=== PATIENT | male | born 1960 | race Hispanic/Latino ===

== ENCOUNTER 2025-07-03 09:28 | Emergency (ER) | payer OTHER ==
[~2025-07-03] VITALS: Ht 175.3 cm; Wt 80.7 kg
[2025-07-03 09:33] VITALS: BP 132/78; PULSE 125; RESP 16; TEMP 97.9
--- NOTE | 2025-07-03 09:46 | EKG ---
[facility] Test Date: 2025-07-03 Test Time: 09:39:07 Pat Name: DUKE GARCIA Department: ED Room: Gender: M Pharmacy Delivery Driver: [id number] : 1960 Requested By: JEIMY BRIDGES Order Number: [id number] Reading MD: Leon Langley Measurements Intervals Occidental Rate: 110 P: 48 IL: 127 QRS: -32 QRSD: 82 T: 78 QT: 326 QTc: 440 Interpretive Statements Sinus tachycardia Left axis deviation No previous ECG available for comparison Electronically Signed On 07-03-2025 18:17:01 PYTHON CONSULTANT by Leon Langley Please click the below link to view image of tracing.
[2025-07-03] MEDS ORDERED: 0.9%NACL 1000ML 1,000 ML IV ONE (10:00)
[2025-07-03 10:05] LABS: IMMATURE GRANULOCYTE ABSOLUTE 1.94 K/uL (0-1); NUCLEATED RED BLOOD CELLS 3.9 % (0.0-0.19); PLATELET COUNT (AUTO) 81 K/uL (130-400); RED BLOOD CELL COUNT(AUTO) 3.50 MIL/uL (4.50-6.20); RED CELL DISTRIBUTION WIDTH 14.7 % (11.0-15.5); WHITE BLOOD COUNT (AUTO) 16.0 K/uL (4.8-10.8)
[2025-07-03 10:07] LABS: APPEARANCE,URINE CLOUDY (CLEAR); GLUCOSE, URINE (UA) 30 mg/dL (NEGATIVE); LEUKOCYTE ESTERASE ,URINE NEGATIVE Leu/uL (NEGATIVE); NITRATE,URINE NEGATIVE (NEGATIVE); OCCULT BLOOD,URINE SMALL (NEGATIVE)
[2025-07-03 10:11] LABS: ADD UA MICROSCOPIC YES
[2025-07-03 10:13] LABS: CREATININE 0.8 mg/dL (0.5-1.3); GLOMERULAR FILTR. RATE CALC 97.0 mL/min (>90); GLUCOSE,RANDOM 190.0 mg/dL (70-105); SODIUM SERUM 139.0 mmol/L (136-145); UREA NITROGEN, BLOOD 16.0 mg/dL (7-18)
[2025-07-03 10:14] LABS: SQUAMOUS EPITHELIAL CELL,UR RARE /HPF (0-2)
[2025-07-03 10:15] LABS: INR 1.68 (0.85-1.15)
[2025-07-03 10:26] LABS: ASPARTATE AMINOTRANSFERASE 402.0 U/L (10-37); TOTAL PROTEIN, SERUM 6.7 g/dL (6.0-8.3)
[2025-07-03 10:33] LABS: CREATINE KINASE, TOTAL 749.0 U/L (21-232)
--- NOTE | 2025-07-03 11:22 | HMCIMG ---
EXAM: CT Abdomen and Pelvis Without IV contrast CLINICAL HISTORY: left flank pain TECHNIQUE: Axial computed tomography images of the abdomen and pelvis without intravenous contrast. CONTRAST: No IV contrast. COMPARISON: None provided. FINDINGS: LUNG BASES: Mild left-sided and minimal right-sided pleural effusion with passive atelectasis of the underlying lung. LIVER: Unremarkable. GALLBLADDER AND BILE DUCTS: The gallbladder appears within normal limits. No radioopaque gallstones are seen. No biliary ductal dilatation is evident. PANCREAS: Unremarkable. SPLEEN: Unremarkable. ADRENAL GLANDS: Unremarkable. KIDNEYS, URETERS, AND BLADDER: Mild bilateral perinephric fat stranding with mild thickening of the left-sided anterior and lateral conal fascia. There is no hydronephrosis or hydroureter. No urinary calculi are seen. The urinary bladder is minimally distended. STOMACH AND BOWEL: Unremarkable appearance of the stomach and bowel. No evidence of bowel obstruction. No evidence suggesting enteritis or colitis. Small bilateral inguinal hernia with fat content. 0.8 cm-sized umbilical defect with omental fat herniation. APPENDIX: No evidence of acute appendicitis on CT examination. PERITONEUM: Trace free fluid. No free air. LYMPH NODES: Multiple subcentimeter to enlarged lymph nodes in the pre-aortic, para-aortic, aorto-caval, and retroperitoneal largest measuring 1.7 x 1.5 cm in the left para-aortic region. REPRODUCTIVE: Unremarkable as visualized. VASCULATURE: No evidence of abdominal aortic aneurysm. BONES: Degenerative changes in the visualized spine in the form of marginal osteophytes and degenerative discs at multiple lumbar levels. No aggressive appearing osseous lesion. No acute osseous pathology evident. IMPRESSION: 1. Mild left-sided and minimal right-sided pleural effusion with passive atelectasis. 2. Mild bilateral perinephric fat stranding with mild thickening of the left-sided anterior and lateral conal fascia, likely suggestive of pyelonephritis. Suggest contrast study for further evaluation. 3. Multiple subcentimeter to enlarged lymph nodes in the retroperitoneum, the largest measuring 1.7 x 1.5 cm in the left para-aortic region. 4. Trace free peritoneal fluid. /[place]
--- NOTE | 2025-07-03 13:46 | NUR ---
multiple attempts to call pt, no answer, called again after 30 min, still no answer. security sarah and counter clerk [employer] state they saw pt leave facility. pt had no iv in place and eloped after seeing physician.
--- NOTE | 2025-07-03 13:54 | ERN ---
ED Note History of Present Illness Stated Complaint: FLANK PAIN, FREQUENCY Chief Complaint: Flank Pain Time Seen by MD: 09:36 Dictation: 65-year-old male presenting to the emergency department with generalized weakness and flank pain over the past few weeks worsening, no fever no chest pain no shortness a breath however patient has not been seen by his primary care doctor. Also complained about bleeding from gums. Allergies: Coded Allergies: No Known Allergies (Unverified Allergy, Unknown, 07/03/25) Past Medical History Past Medical History: Diabetes-Type II, Kidney Stone, Pancreatitis Surgical History: None Review of System Dictation Constitutional: Negative for fever,chills Eyes: Negative for injury, pain,redness, and discharge ENT: Negative for injury,pain or swelling Cardiovascular: Negative for chest pain, palpitations, and edema Respiratory: Negative for shortness of breath, cough, and wheezing, Abdomen/GI: Per HPI MS/Extremity: Negative for injury and deformity Skin: Negative for rash, and discoloration Neuro: Per HPI Initial Vital Sign VS Vital Signs Date Time Temp Pulse Resp B/P (MAP) Pulse Ox O2 Delivery O2 Flow Rate FiO2 07/03/25 09:33 97.9 125 16 132/78 98 Room Air 0 Physical Exam Dictation General: awake, alert, appears chronically ill, Head/Face: Normocephalic, atraumatic Eyes: PERRL, EOMI, vision at baseline ENT: oral cavity clear, TMs clear, no signs of infection Neck: Trachea midline, supple, no nuchal rigidity Cardiovascular: RRR, normal S1/S2, No MRGs, no JVD Respiratory: CTAB, no respiratory distress, No rales or wheezes Abdomen: Soft, non-tender, non-distended, normal bowel sounds, no guarding or rebound. Skin: Warm, dry, normal turgor, no rash MS/Extremity: Pulses equal, no cyanosis, neurovascular intact, FROM Neuro: COAx4, GCS 15, strength 5/5, CN 2-12 intact, normal cerebellar exam, normal gait, Psych: Normal behavior, mood, and affect normal Results (Laboratory/Radiology) Laboratory/Radiology Laboratory Tests Test 07/03/25 09:45 07/03/25 13:23 White Blood Count 16.0 K/uL (4.8-10.8) H Red Blood Count 3.50 MIL/uL (4.50-6.20) L Hemoglobin 10.3 g/dL (14.0-18.0) L Hematocrit 31.7 % (42-54) L Mean Corpuscular Volume 90.6 fL (79-99) Mean Corpuscular Hemoglobin 29.4 pg (27.0-33.0) Mean Corpuscular Hemoglobin Concent 32.5 g/dL (32.0-36.0) Red Cell Distribution Width 14.7 % (11.0-15.5) Platelet Count 81 K/uL (130-400) L Mean Platelet Volume 11.1 fL (7.5-10.5) H Immature Granulocyte % (Auto) 12.1 % (0-1) H Neutrophils (%) (Auto) 57.1 % (40.0-77.0) Lymphocytes (%) (Auto) 22.0 % (21.0-51.0) Monocytes (%) (Auto) 6.4 % (3.0-13.0) Eosinophils (%) (Auto) 1.1 % (0.0-8.0) Basophils (%) (Auto) 1.3 % (0.0-5.0) Neutrophils # (Auto) 9.1 K/uL (1.8-7.7) H Lymphocytes # (Auto) 3.5 K/uL (1.0-4.8) Monocytes # (Auto) 1.0 K/uL (0.1-1.0) Eosinophils # (Auto) 0.18 K/uL (0.00-0.70) Basophils # (Auto) 0.21 K/uL (0.00-0.20) H Absolute Immature Granulocyte (auto 1.94 K/uL (0-1) H Nucleated Red Blood Cells 3.9 % (0.0-0.19) H Prothrombin Time 16.9 SEC (9.6-11.6) H Prothromb Time International Ratio 1.68 (0.85-1.15) H Activated Partial Thromboplast Time 27.1 SEC (26.3-35.5) Urine Color YELLOW (YELLOW) Urine Appearance CLOUDY (CLEAR) H Urine pH 5.5 (5.0-8.0) Urine Specific [place] 1.028 (1.001-1.031) Urine Protein 100 mg/dL (NEGATIVE) H Urine Glucose (UA) 30 mg/dL (NEGATIVE) H Urine Ketones 5 mg/dL (NEGATIVE) H Urine Occult Blood SMALL (NEGATIVE) H Urine Nitrate NEGATIVE (NEGATIVE) Urine Bilirubin NEGATIVE mg/dL (NEGATIVE) Urine Urobilinogen 0.2 mg/dL (0.2-1.0) Urine Leukocyte Esterase NEGATIVE Ash/uL Urine RBC 11-25 /HPF (0-1) H Urine WBC 2-5 /HPF (0-1) H Urine Squamous Epithelial Cells RARE /HPF (0-2) Urine Bacteria None /HPF (None Seen) Sodium Level 139 mmol/L (136-145) Potassium Level 3.9 mmol/L (3.5-5.1) Chloride Level 101 mmol/L (101-111) Carbon Dioxide Level 27 mmol/L (21-32) Blood Urea Nitrogen 16 mg/dL (7-18) Creatinine 0.8 mg/dL (0.5-1.3) Glomerular Filtration Rate Calc 97 mL/min (>90) Random Glucose 190 mg/dL (70-105) H Lactic Acid Level 2.5 mmol/L (0.8-2.5) 2.3 mmol/L (0.8-2.5) Total Calcium 11.2 mg/dL (8.5-10.1) H Total Bilirubin 0.7 mg/dL (0.2-1.0) Direct Bilirubin 0.1 mg/dL (0.0-0.3) Aspartate Amino Transf (AST/SGOT) 402 U/L (10-37) H Alanine Aminotransferase (ALT/SGPT) 68 U/L (12-78) Alkaline Phosphatase 347 U/L (50-136) H Ammonia 18 umol/L (11-32) Total Creatine Kinase 749 U/L (21-232) *H Troponin I High Sensitivity 11 ng/L (4-75) Total Protein 6.7 g/dL (6.0-8.3) Albumin 3.2 g/dL (3.5-5.0) L Triglycerides Level 398 mg/dL (30-200) H Lipase 611 U/L (16-77) H Labs Reviewed?: Yes EKG Comment: Heart rate 110, sinus tachycardia normal intervals no STEMI ED Course ED Course Orders Procedure Category Date Status Time 12 Lead Ekg Tracing- EKG 07/03/25 Complete Technical 09:36 Basic Metabolic Panel LAB 07/03/25 Complete 09:36 Cbc With Differential LAB 07/03/25 Complete 09:36 Hepatic Function Panel LAB 07/03/25 Complete 09:36 Creatine Kinase, Total LAB 07/03/25 Complete 09:36 Ammonia LAB 07/03/25 Complete 09:36 Lactic Acid LAB 07/03/25 Complete 09:36 Lipase LAB 07/03/25 Complete 09:36 Pt And Ptt LAB 07/03/25 Complete 09:36 Troponin I High LAB 07/03/25 Complete Sensitivity 09:36 Urinalysis Profile LAB 07/03/25 Complete 09:36 Ct Abd/Pel Wo Con CT 07/03/25 Resulted Renal/Appy 09:36 0.9%Nacl 1000ml (Ns PHA 07/03/25 Complete 1000ml) 10:00 Ondansetron 4mg Inj PHA 07/03/25 Complete (Zofran 4mg Inj) 10:34 Morphine 4mg Syg PHA 07/03/25 Complete (Morphine 4mg Syg) 10:34 Triglycerides LAB 07/03/25 Complete 10:34 Lactic Acid (Removed) LAB 07/03/25 Complete 13:02 Current Medications Medications (Trade) Dose Ordered Sig/Kristopher Route PRN Reason Start Time Stop Time Status Last Admin Dose Admin Morphine Sulfate (morPHINE 4MG SYG) 4 mg ONCE STAT IVP 07/03/25 10:34 07/03/25 10:36 DC Ondansetron HCl (zoFRAN 4MG INJ) 4 mg ONCE STAT IVP 07/03/25 10:34 07/03/25 10:36 DC Sodium Chloride 1,000 ml @ 0 mls/hr ONCE ONCE IV 07/03/25 10:00 07/03/25 10:01 DC Vital Signs Date Time Temp Pulse Resp B/P (MAP) Pulse Ox O2 Delivery O2 Flow Rate FiO2 07/03/25 09:33 97.9 125 16 132/78 98 Room Air 0 Medical Decision Making MDM MDM: Differential diagnosis: Rationale: Tests considered and ordered secondary to shared decision making include: labs, ECG and radiology Previous outside records reviewed: Old ER visits. Risk of complication and/or morbidity or mortality of patient management: None Medications-Per medication reconciliation Need for hospitalization: Patient does meet criteria for hospitalization. Need for emergency major/minor surgery: No There are no social concerns with this patient. Prescription drug management Prescriptions will include symptomatic care Patient's prior external medical records from other ER visits were reviewed by me as indicated. Prior testing and results from previous visits were reviewed. Prior tests were taken into account with medical decision making and resource utilization, independent historian/historians were used to obtain complete medical history. I independently interpreted the test that were performed, results were reviewed by me and considered findings on radiology if ordered. Medical management and examination interpretation discussions were had by me with other qualified healthcare professionals as indicated for the patient's care. 65-year-old male with vague symptoms including generalized weakness bleeding from gums and flank pain, initial workup was concerning for chronic disease pattern, mild elevated lipase and CT scan showed signs of possible metastatic disease, recommended patient be admitted however upon the secondary assessment with the patient patient was no longer present in the waiting room by staff to bring patient back to a room and they were unable to find him as well advised that we send a certified letter or call the contact number that was left by the patient given by the patient so that we can inform him of the findings and encouraged admission for full cancer workup. DX & DISP Disposition: AMA Departure Impression: Primary Impression: Flank pain Additional Impression: Acute pancreatitis Condition: Stable Referrals: URSULA GONSALEZ MD (PCP) JEIMY BRIDGES MD Jul 03, 2025 13:54
== END 2025-07-03 13:51 | disposition left against medical advice (07) ==
LOC: EDH 09:28
DX: K85.90 Acute pancreatitis without necrosis or infection, unspecified (principal); E11.9 Type 2 diabetes mellitus without complications; Z87.19 Personal history of other diseases of the digestive system; Z87.442 Personal history of urinary calculi
CPT/HCPCS: 36415; 74176; 80048; 80076; 81001; 82140; 82550; 83605; 83690; 84478; 84484; 85025; 85610; 85730; 93005; 99284